=== PATIENT | female | born 1955 | race Caucasian/White ===

== ENCOUNTER → 2021-07-10 | Outpatient (CLI) | payer OTHER | LOC: MC.RAD 13:14 | DX: Z12.31 Encounter for screening mammogram for malignant neoplasm of breast (principal) ==

== ENCOUNTER → 2023-09-03 | Outpatient (CLI) | payer MEDICARE | LOC: MC.RAD 11:04 | DX: Z12.31 Encounter for screening mammogram for malignant neoplasm of breast (principal) ==

== ENCOUNTER 2024-03-04 12:47 | Outpatient (RCR) | payer MEDICARE | END 2024-03-13 | disposition home or self-care (01) | LOC: WSST | DX: R13.12 Dysphagia, oropharyngeal phase (principal) ==

== ENCOUNTER 2024-03-18 10:49 | Outpatient (RCR) | payer MEDICARE | END 2024-04-12 | disposition home or self-care (01) | LOC: WSST | DX: R13.12 Dysphagia, oropharyngeal phase (principal) ==